=== PATIENT | female | born 1985 | race Caucasian/White ===

== ENCOUNTER 2016-09-18 16:34 | Emergency (ER) | payer OTHER ==
[2016-09-18] MEDS ORDERED: Cephalexin CAP* 500 MG PO ONE (17:18)
[2016-09-18] MEDS ORDERED: Sulfamethox/Trimethoprim DS 800/160* TAB PO ONE (17:21)
--- NOTE | 2016-09-18 17:21 | ED ---
Skin Complaint - HPI Summary HPI Summary: 31F presents with redness to left leg for 4 days. She states she has a history of cellulites. She denies any fever. She states the initially injury was a dog scratch. She states she started to take old Keflex yesterday. She states the redness on her legs has been spreading. she denies any recent travel, surgery, history of DVT, personal history of Cancer or smoking history. - History of Current Complaint Chief Complaint: EDExtremityLower Time Seen by Provider: 09/18/16 17:07 Stated Complaint: LEFT LEG PAIN Pain Intensity: 9 - Allergy/Home Medications Allergies/Adverse Reactions: Allergies Allergy/AdvReac Type Severity Reaction Status Date / Time No Known Allergies Allergy Verified 09/18/16 16:49 PMH/Surg Hx/FS Hx/Imm Hx Endocrine/Hematology History: Denies: Hx Diabetes Respiratory History: Denies: Hx Asthma - Immunization History Date of Tetanus Vaccine: w/in last 10 years Infectious Disease History: No Infectious Disease History: Denies: Traveled Outside the [place] in Last 30 Days - Family History Known Family History: Positive: Hypertension - Social History Alcohol Use: None Substance Use Type: Reports: None, Marijuana Smoking Status (MU): Never Smoked Tobacco Review of Systems Negative: Fever Negative: Chest Pain Negative: Shortness Of Breath Positive: Other - erythema of left lower leg All Other Systems Reviewed And Are Negative: Yes Physical Exam Triage Information Reviewed: Yes Vital Signs On Initial Exam: Initial Vitals Temp Pulse Resp BP Pulse Ox 98.2 F 90 17 136/75 99 09/18/16 16:46 09/18/16 16:46 09/18/16 16:46 09/18/16 16:46 09/18/16 16:46 Vital Signs Reviewed: Yes Appearance: Positive: Well-Appearing Skin: Positive: Warm, Dry, Other - 8cm by 8 cm area of erythema on left calf Head/Face: Positive: Normal Head/Face Inspection Eyes: Positive: Normal, Conjunctiva Clear Respiratory/Lung Sounds: Positive: Clear to Auscultation, Breath Sounds Present Cardiovascular: Positive: Normal, RRR Musculoskeletal: Positive: Strength/ROM Intact - of left knee and ankle, Other - good pulses. Negative: Esthela Sign Left Diagnostics - Vital Signs Vital Signs Temp Pulse Resp BP Pulse Ox 09/18/16 17:03 98.2 F 90 17 136/75 99 09/18/16 16:46 98.2 F 90 17 136/75 99 - Laboratory Lab Statement: Any lab studies that have been ordered have been reviewed, and results considered in the medical decision making process. Course/Dx - Course Course Of Treatment: 31F presents with erythema of left calf for 4 days. had dog scratch intially and then spreading redness occurred. denies any drainage. denies any fever. on exam erythema noted of left calf consistent with cellulitis. no risk factors for DVT. took one day of keflex that had at home that was old without relief. will have take keflex and bactrim due to potentially being from dog scratch. patient understands and agrees with plan - Differential Diagnoses - Skin Complaint Differential Diagnoses: Abscess, Cellulitis, Contact Dermatitis - Diagnoses Provider Diagnoses: Cellulitis of left ankle Discharge - Discharge Plan Condition: Good Disposition: HOME Prescriptions: Cephalexin CAP* [Keflex CAP*] 500 mg PO QID #39 cap Sulfamethox/Trimethoprim DS* [Bactrim DS 800/160 TAB*] 1 tab PO BID #20 tab Patient Education Materials: Cellulitis (ED) Forms: *Work Release Referrals: Olesya Mejia MD [Medical Doctor] - Additional Instructions: Take keflex four times a day for 10 days Take bactrim twice a day for 10 days Follow up with primary within 3 days Return to ED if develop fever, spreading redness, or any new or worsening symptoms
[2016-09-18 17:24] VITALS: BP 136/75
== END 2016-09-18 17:37 | disposition home or self-care (01) ==
LOC: ED 16:34
DX: L03.116 Cellulitis of left lower limb (principal)
CPT/HCPCS: 99281; A9270-GY

== ENCOUNTER 2019-02-12 17:42 | Emergency (ER) | payer SELFPAY ==
[2019-02-12 17:58] VITALS: BP 131/74
[2019-02-12] MEDS ORDERED: Ibuprofen TAB* 600 MG PO ONE (18:22)
[2019-02-12] MEDS ORDERED: cefTRIAXone VIAL(*) 1,000 MG VIAL IM ONE (18:29)
[2019-02-12] MEDS ORDERED: Lidocaine 1% MPF ** 5 ML VIAL IM ONE (18:30)
--- NOTE | 2019-02-12 18:47 | UC ---
Skin Complaint HPI - HPI Summary HPI Summary: Patient is a 33yo female presenting with cellulitis of left lower leg x4 days. She states she gets this a couple times every year for years but this is the worst it has been. She notes fevers, chills, nausea, and vomiting on saturday and saturday but believes she had the flu. She denies any fever or vomiting for the past day. Notes severe pain to touch and with ambulation. Notes swelling but that she always has swelling. She believes she has taken keflex in the past for cellulitis. - History of Current Complaint Chief Complaint: UCSkin Stated Complaint: CELLULITIS OF LEFT CALF Hx Obtained From: Patient Hx Last Menstrual Period: 02/12/2019 Onset/Duration: Sudden Onset, Lasting Days Timing: Constant Onset Severity: Mild Current Severity: Moderate Pain Intensity: 5 Pain Scale Used: 0-10 Numeric - Allergy/Home Medications Allergies/Adverse Reactions: Allergies Allergy/AdvReac Type Severity Reaction Status Date / Time No Known Allergies Allergy Verified 02/12/19 17:55 PMH/Surg Hx/FS Hx/Imm Hx Cardiovascular History: Hypertension - Surgical History Surgical History: None - Family History Known Family History: Positive: Hypertension, Non-Contributory - Social History Alcohol Use: None Substance Use Type: None Smoking Status (MU): Never Smoked Tobacco Review of Systems All Other Systems Reviewed And Are Negative: Yes Constitutional: Positive: Fever, Chills, Fatigue Skin: Positive: Rash ENT: Positive: Negative Respiratory: Positive: Negative. Negative: Shortness Of Breath, Cough Cardiovascular: Positive: Negative. Negative: Palpitations Gastrointestinal: Positive: Vomiting, Nausea. Negative: Abdominal Pain Neurovascular: Positive: Negative. Negative: Decreased Sensation Musculoskeletal: Positive: Edema. Negative: Decreased ROM Neurological: Negative: Headache, Weakness, Paresthesia, Numbness Psychological: Positive: Negative Physical Exam Triage Information Reviewed: Yes Appearance: Well-Appearing, No Pain Distress, Well-Nourished, Obese Vital Signs: Initial Vital Signs Temp 98.4 F 02/12/19 17:56 Pulse 92 02/12/19 17:56 Resp 18 02/12/19 17:56 BP 131/74 02/12/19 17:56 Pulse Ox 97 02/12/19 17:56 Vital Signs Reviewed: Yes Eyes: Positive: Conjunctiva Clear ENT: Positive: Hearing grossly normal Neck: Positive: Supple Respiratory: Positive: No respiratory distress Musculoskeletal Exam: Normal Musculoskeletal: Positive: Strength Intact, ROM Intact, Edema @ - left lower leg and ankle Neurological: Positive: Alert Psychological: Positive: Age Appropriate Behavior Skin: Positive: Rashes, Other - area of erythema and warmth over entire anterior left lower leg spreading posteriorly around leg Course/Dx - Course Course Of Treatment: Discussed with patient that because she has worsening cellulitis with concomitant fever and vomiting this week, it is advisable that she seek medical attention at the emergency department. 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 Because of this and the fact that she has been afebrile without vomiting for the past 24hours, the patient consented to IM ceftriaxone here and a prescription for Bactrim for home. She was instructed to start the Bactrim tonight. I instructed the patient to go immediately to the emergency room if the redness continues to spread past the marker made around her cellulitis while she was here, or if she experiences fever, nausea, or vomiting. Patient was also examined by Dr. Henry who agreed to the treatment plan. The patient voiced understanding and agreed to the treatment plan. - Diagnoses Provider Diagnosis: Cellulitis of left lower leg Discharge ED - Sign-Out/Discharge Documenting (check all that apply): Patient Departure All imaging exams completed and their final reports reviewed: No Studies - Discharge Plan Condition: Stable Disposition: HOME Prescriptions: Sulfamethox/Trimethoprim DS* [Bactrim DS 800/160 TAB*] 1 tab PO BID #20 tab Sulfamethox/Trimethoprim DS* [Bactrim DS 800/160 TAB*] 1 tab PO BID #20 tab Patient Education Materials: Cellulitis (ED) Referrals: Pat Lynch MD [Primary Care Provider] - If Needed Additional Instructions: As discussed, you received one shot of the antibiotic ceftriaxone for your cellulitis. Take Bactrim as prescribed for the treatment of your cellulitis. Keep the area clean and dry. You may take ibuprofen as directed for pain relief. Go directly to the emergency room if you experience fever, increasing redness and warmth to the area, drainage, or nausea and vomiting. - Billing Disposition and Condition Condition: STABLE Disposition: Home
== END 2019-02-12 18:55 | disposition home or self-care (01) ==
LOC: UCEAST 17:42
DX: L03.116 Cellulitis of left lower limb (principal); I10 Essential (primary) hypertension
CPT/HCPCS: 96372; 99212; A9270-GY; G0463; J0696

== ENCOUNTER 2019-02-14 18:22 | Emergency (ER) | payer SELFPAY ==
--- NOTE | 2019-02-14 19:43 | ED ---
Lower Extremity - HPI Summary HPI Summary: 33 yo female [place] [facility] with LEFT lower leg redness, pain, and swelling. She tells me that since she was a teenager she has been having issues with cellulitis in this area. About 6 days ago she developed mild redness and increased swelling to the area. She went to Urgent Care 2 days ago due to worsening symptoms and it was recommended that she come to the ED that day for further evaluation, but she declined. She was given 1gm of ceftriaxone and placed on Bactrim for suspected cellulitis. The red area was outlined at that time in purple marking pen. She comes to the ED this evening due to increased redness, pain, and swelling to the leg. She has been taking her antibiotics as prescribed. She has not been elevating her leg as she has an at home and states she does not have time. She denies fever, chills, n/v. She is ambulatory without assistance. - History of Current Complaint Chief Complaint: EDExtremityLower Stated Complaint: CELLULITIS IN LT LEG PER PT Time Seen by Provider: 02/14/19 19:42 Hx Obtained From: Patient Hx Last Menstrual Period: 02/12/2019 Severity Initially: Moderate Severity Currently: Moderate Pain Intensity: 6 Pain Scale Used: 0-10 Numeric - Allergies/Home Medications Allergies/Adverse Reactions: Allergies Allergy/AdvReac Type Severity Reaction Status Date / Time No Known Allergies Allergy Verified 02/12/19 17:55 Home Medications: Home Medications Ibuprofen TAB* [Advil TAB*] 800 mg PO Q8HR PRN 02/14/19 [History Confirmed 02/14] PMH/Surg Hx/FS Hx/Imm Hx Endocrine/Hematology History: Denies: Hx Blood Disorders, Hx Diabetes Cardiovascular History: Denies: Hx Cardiac Arrest Respiratory History: Denies: Hx Asthma, Hx Chronic Obstructive Pulmonary Disease (COPD) GI History: Denies: Hx Gastrointestinal Bleed Neurological History: Denies: Hx Migraine - Surgical History Surgical History: None - Immunization History Date of Tetanus Vaccine: w/in last 10 years Immunizations Up to Date: Yes Infectious Disease History: No Infectious Disease History: Denies: Traveled Outside the [place] in Last 30 Days - Family History Known Family History: Positive: Hypertension, Non-Contributory - Social History Lives: With Family Alcohol Use: None Substance Use Type: Reports: None Smoking Status (MU): Never Smoked Tobacco Review of Systems Constitutional: Negative Cardiovascular: Negative Respiratory: Negative Gastrointestinal: Negative Genitourinary: Negative Musculoskeletal: Negative Skin: Other - Left lower leg redness, pain, swelling Neurological: Negative Psychological: Normal All Other Systems Reviewed And Are Negative: No Physical Exam - Summary Physical Exam Summary: GENERAL: NAD. WDWN. No pain distress. SKIN: LEFT LOWER LEG: Moderate erythema circumferentially that does not extend beyond the previously drawn outline. Moderate taut edema to the leg and foot. Tenderness at the calf. No open wound, drainage, weeping, blistering, or ecchymosis. No streaking. NECK: Supple. Nontender. No lymphadenopathy. CHEST: No accessory muscle use. Breathing comfortably and in no distress. CV: Pulses intact popliteal, PT, and DP. Cap refill <2seconds MSK: FROM at left ankle without pain NEURO: Alert. PSYCH: Age appropriate behavior. Triage Information Reviewed: Yes Vital Signs On Initial Exam: Initial Vitals Temp Pulse Resp BP Pulse Ox 98.4 F 88 16 150/101 95 02/14/19 18:24 02/14/19 18:24 02/14/19 18:24 02/14/19 18:24 02/14/19 18:24 Vital Signs Reviewed: Yes Diagnostics - Vital Signs Vital Signs Temp Pulse Resp BP Pulse Ox 02/14/19 18:24 98.4 F 88 16 150/101 95 - Laboratory Lab Results: Laboratory Tests 02/14/19 02/14/19 02/14/19 20:08 20:08 20:08 WBC 10.8 RBC 4.79 Hgb 13.8 Hct 40 MCV 84 MCH 29 MCHC 34 RDW 14 Plt Count 280 MPV 7.4 Neut % (Auto) 71.0 Lymph % (Auto) 15.9 [place] % (Auto) 10.1 Eos % (Auto) 2.1 Baso % (Auto) 0.9 Absolute Neuts (auto) 7.7 Absolute Lymphs (auto) 1.7 Absolute Monos (auto) 1.1 H Absolute Eos (auto) 0.2 Absolute Basos (auto) 0.1 Absolute Nucleated RBC 0.0 Nucleated RBC % 0.1 Sodium 138 Potassium 3.3 L Chloride 102 Carbon Dioxide 28 Anion Gap 8 BUN 12 Creatinine 0.78 Est GFR ( Amer) 102.3 Est GFR (Non-Af Amer) 84.5 BUN/Creatinine Ratio 15.4 Glucose 102 H Lactic Acid 1.5 Calcium 8.9 Total Bilirubin 0.50 AST 17 ALT 23 Alkaline Phosphatase 61 C-Reactive Protein 94.31 H Total Protein 7.1 Albumin 3.8 Globulin 3.3 Albumin/Globulin Ratio 1.2 Result Diagrams: 02/14/19 20:08 02/14/19 20:08 Lab Statement: Any lab studies that have been ordered have been reviewed, and results considered in the medical decision making process. - Ultrasound left leg Ultrasound Interpretation Completed By: Radiologist Summary of Ultrasound Findings: IMPRESSION: No evidence of deep vein thrombosis of the thigh. The left peroneal vein is not seen. This could be occluded. Re-Evaluation - Re-Evaluation First Eval Re-Evaluation Time: 21:41 Change: Worse Comment: Increasing pain. Early scant blistering compared to earlier. Lower Extremity Course/Dx - Course Course Of Treatment: Suspect cellulitis. No leukocytosis and she has been afebrile. US negative for DVT. In the ED course she was given 1L NS, 2gm cefazolin, toradol, and morphine for her symptoms. She had much improved pain s/ p pain medication, but the appearance of the leg did not change after 1st eval. Given this, I discussed the case with hospitalist Dr. Joshua - who also examined the pt. Please see her dictacted note. Dr. Joshua recommends continue outpatient po anbx and encourage pt to elevate her leg. I discussed this with the pt and she is agreeable to discharge at this time. Strongly encoruaged to recheck with her PCP in 2 days. If she develops a fever, n/v, or worsening symptoms to return to the ED immediately. Pt voiced understanding and agrees with the plan. - Diagnoses Provider Diagnoses: Cellulitis of left leg - Physician Notifications Discussed Care Of Patient With: Lisa Joshua - Recommends continue outpatient po anbx. Elevate leg. F/u with PCP for recheck. Discharge ED - Sign-Out/Discharge Documenting (check all that apply): Patient Departure Patient Received Moderate/Deep Sedation with Procedure: No - Discharge Plan Condition: Stable Disposition: HOME Prescriptions: traMADol TAB* [Ultram*] 50 mg PO Q12H PRN #6 tab MDD 2 PRN Reason: Pain - Moderate Patient Education Materials: Cellulitis (ED) Referrals: Pat Lynch MD [Primary Care Provider] - 2 Days Additional Instructions: If you develop a fever, shortness of breath, chest pain, new or worsening symptoms - please call your PCP or go to the ED immediately. 1) Continue your antibiotic as prescribed 2) ELEVATE your leg throughout the day to decrease swelling and pain 3) If the redness, pain, or swelling worsen or if you develop a fever, nausea, vomiting - please return to the ER - Billing Disposition and Condition Condition: STABLE Disposition: Home - Attestation Statements Provider Attestation: I have seen the patient with the FELECIA and agree with the plan and documentation below except as noted: 34-year-old female who presents with lower extremity redness and swelling. Recent diagnosed with cellulitis, on Bactrim. Physical exam consistent with cellulitis however has significant swelling. We'll consider changing antibiotics to something that covers strep better. Patient given 2 doses of Ceftriaxone here, discussed hospitalist regarding admission however she states patient should be okay to follow up outpatient and continue on her antibiotics given lack of systemic symptoms.
[2019-02-14] MEDS ORDERED: ceFAZolin 2 GM in NS PREMIX(*) 2 GM/100 ML BAG IVPB ONE (20:09)
[2019-02-14] MEDS ORDERED: NS 0.9% 1000 ML** 1,000 ML IV ONE (20:09)
[2019-02-14 20:14] LABS: ABS Basophils 0.1 10^3/ul (0-0.2); ABS Eosinophils 0.2 10^3/ul (0-0.6); ABS Lymphocytes 1.7 10^3/ul (1.0-4.8); ABS Monocytes 1.1 10^3/ul (0-0.8); ABS Neutrophils 7.7 10^3/ul (1.5-7.7); Eosinophil % 2.1 %; Hematocrit 40 % (35-47); Hemoglobin 13.8 g/dL (12.0-16.0); Lymphocyte % 15.9 %; Mean Corpuscular HGB Conc 34 g/dL (31-36); Mean Corpuscular Hemoglobin 29 pg (27-31); Mean Corpuscular Volume 84 fL (80-97); Mean Platelet Volume 7.4 fL (7.4-10.4); Nucleated Red Blood Cells % 0.1; Platelet Count 280 10^3/uL (150-450); Red Blood Count 4.79 10^6 /uL (3.70-4.87); Red Cell Distribution Width 14 % (10-15); White Blood Count 10.8 10^3/uL (3.5-10.8)
[2019-02-14 20:31] LABS: Albumin 3.8 g/dL (3.2-5.2); Albumin/Globulin Ratio 1.2 (1-3); BUN/Creatinine Ratio 15.4 (8-20); C Reactive Protein 94.31 mg/L (<8.01); Calcium 8.9 mg/dL (8.6-10.3); EGFR African American 102.3 (>60); EGFR Non-African American 84.5 (>60); Globulin 3.3 g/dL (2-4); Potassium 3.3 mmol/L (3.5-5.0); Total Bilirubin 0.5 mg/dL (0.2-1.0); Total Protein 7.1 g/dL (6.4-8.9)
[2019-02-14] MEDS ORDERED: Morphine 4 MG/ML VIAL (1 ml) 4 MG/ML VIAL IV ONE (21:40)
[2019-02-14] MEDS ORDERED: Ketorolac INJ* 30 MG/ML 1 ML VIAL IV ONE (21:40)
[2019-02-14] MEDS ORDERED: traMADol TAB* 50 MG PO ONE (23:56)
[2019-02-15 00:16] VITALS: BP 133/73
--- NOTE | 2019-02-15 01:51 | CONS ---
CC: Dr. Lynch; ASTRID Samuels * CONSULTATION REPORT: DATE OF CONSULT: 02/14/19 - EMERGENCY DEPT PRIMARY CARE PROVIDER: Dr. Lynch. CHIEF COMPLAINT: Left leg redness. HISTORY OF PRESENT ILLNESS: Annika Mitchell is a 33-year-old female with history of recurrent left lower extremity edema with cellulitis, who presented initially to [facility] 2 days ago for cellulitis. She received Bactrim and she took a total of 4 tablets of Bactrim since that time and she presents today complaining of increasing redness and swelling of the left lower extremity. The patient stated that she has a 1-year-old toddler in the house and she had not been able to rest or keep her foot elevated. PAST MEDICAL HISTORY: History of recurrent left lower extremity cellulitis. MEDICATIONS: Bactrim DS 1 tablet p.o. b.i.d. SOCIAL HISTORY: The patient works at "[employer] She has a toddler at home. She denies any tobacco or drug use. REVIEW OF SYSTEMS: The patient denies any fevers, shortness of breath, denies any nausea or vomiting. Her appetite has been good. Complains of chronic left lower extremity edema with worsening in the past 5 days. Her cellulitis had been ongoing for the past 6 days, out of that for 2 of those days recently she was treated with Bactrim. All the remaining 12 systems were reviewed with the patient and were otherwise negative. PHYSICAL EXAM: Blood pressure 152/63, heart rate of 76 and regular, respiratory rate 20, oxygen saturation 97% on room air, temperature of 97.8. General: The patient is a very pleasant 33-year-old female with a BMI of 60, who is in no acute distress. Alert, awake, and oriented x3. HEENT: Head: Atraumatic, normocephalic. Eyes: Pupils are equal, reactive to light and accommodation. Oropharynx clear. Mucosa moist. Neck: Supple. No JVD. No bruit bilaterally. Cardiovascular: Regular rate and rhythm. There were no murmur. Respiratory: Clear to auscultation bilaterally. Abdomen: Soft and nontender. Bowel sounds present in all 4 quadrants. Extremities: There is left foot edema of +1. Left calf edema of +1. The calf has erythema, positive cellulitis extending from the level of the ankle to the level of the left knee. Skin appears intense red with small subcutaneous blisters. There is no evidence of the redness extending beyond the level of the demarcated area that was marked at [facility] 2 days ago. The right foot has no edema and no cellulitis. On further evaluation of the skin no other abnormalities noted. DIAGNOSTIC STUDIES/LAB DATA: White blood cell count 10.8, hemoglobin 13.8, hematocrit 40, and platelets 208. Sodium of 138, potassium 3.6, chloride 102, carbon dioxide 28, BUN 12, creatinine 0.78. Liver function tests were unremarkable. C-reactive protein of 94. The patient's Dopplers were negative for DVT. ASSESSMENT AND PLAN: In regards to the patient's left leg cellulitis, the cellulitis does not appear to be extended beyond the line that was placed on the left leg 2 days ago. The patient had been compliant with Bactrim and she had been afebrile and has had good appetite. At this point, the edema is worse and I suspect the edema is worse because the patient has a busy life as the mother of a toddler and she had not been able to keep her leg elevated. We talked at length about keeping the patient's leg elevated to allow the edema to improve. I offered for the patient to be placed on overnight observation and IV antibiotics, but I also ensured her that the leg infection would likely improve with elevation and the antibiotic that she currently is taking alone. The patient at this point chose to be discharged home and preferred not to be admitted. Recommended for the patient to come back to the hospital if she starts having open wounds in the area of cellulitis. If the cellulitis area crosses the demarcated border, if she starts having fevers or chills, nausea or vomiting or any other worrisome symptoms. Thank you very much for allowing me to see the patient in consultation. The care of the patient was discussed with the patient's current provider, Rory Arevalo, who is going to discharge the patient from the emergency room. TIME SPENT: Approximately 35 minutes were spent on this patient's consultation. [id number]/[facility] #: [id number] [place]
== END 2019-02-15 00:16 | disposition home or self-care (01) ==
LOC: ED 18:22
DX: L03.116 Cellulitis of left lower limb (principal)
CPT/HCPCS: 36415; 80053; 83605; 85025; 86140; 87040; 96365; 96366; 96375; 99283; A9270-GY; J0690; J1885; J2270

== ENCOUNTER 2019-07-21 19:36 | Emergency (ER) | payer SELFPAY ==
--- NOTE | 2019-07-21 19:53 | ED ---
Lower Extremity - HPI Summary HPI Summary: 34 year old F presenting to [facility] accompanied by her male reflexologist with a chief complaint of a right foot injury since 12:00 today after stepping off of a curb, worse since 16:30/17:00 after ambulating on it throughout the day. The patient rates the pain 8/10 in severity. Symptoms aggravated by palpation and exertion. Symptoms alleviated by nothing. Patient reports that she took 6 ibuprofen 1 hour ago without relief. The patient has previously injured her right foot when she was 5 years old and 14 years old. She denies any history of medical problems, surgery, or family illnesses. She admits to an active history of marijuana and tobacco use. Medication list reviewed. Allergy list reviewed. - History of Current Complaint Chief Complaint: EDExtremityLower Stated Complaint: R FOOT PAIN PER PT Time Seen by Provider: 07/21/19 19:49 Hx Obtained From: Patient Hx Last Menstrual Period: 02/12/2019 Mechanism Of Injury: Twisted Onset of Pain: Immediate Onset/Duration: Hours Severity Initially: Mild Severity Currently: Moderate Pain Intensity: 8 Pain Scale Used: 0-10 Numeric Timing: Constant Location: Is Discrete @ - Right foot Associated Signs And Symptoms: Positive: Swelling Aggravating Factor(s): Ambulation, Other - Palpation Alleviating Factor(s): Nothing Able to Bear Weight: No - Allergies/Home Medications Allergies/Adverse Reactions: Allergies Allergy/AdvReac Type Severity Reaction Status Date / Time No Known Allergies Allergy Verified 02/12/19 17:55 Home Medications: Home Medications Sulfamethox/Trimethoprim DS* [Bactrim DS 800/160 TAB*] 1 tab PO BID #20 tab [Rx Confirmed 02/14/19] Ibuprofen TAB* [Advil TAB*] 800 mg PO Q8HR PRN 02/14/19 [History Confirmed 02/14] traMADol TAB* [Ultram*] 50 mg PO Q12H PRN #6 tab MDD 2 02/14/19 [Rx] PMH/Surg Hx/FS Hx/Imm Hx Endocrine/Hematology History: Denies: Hx Blood Disorders, Hx Diabetes Cardiovascular History: Denies: Hx Cardiac Arrest Respiratory History: Denies: Hx Asthma, Hx Chronic Obstructive Pulmonary Disease (COPD) GI History: Denies: Hx Gastrointestinal Bleed Neurological History: Denies: Hx Migraine - Surgical History Hx Anesthesia Reactions: No - Immunization History Date of Tetanus Vaccine: w/in last 10 years Infectious Disease History: No Infectious Disease History: Denies: Traveled Outside the [place] in Last 30 Days - Family History Known Family History: Positive: Hypertension - Social History Alcohol Use: None Hx Substance Use: Yes Substance Use Type: Reports: Marijuana Hx Tobacco Use: Yes Smoking Status (MU): Current Every Day Smoker Cessation Counseling: Patient Advised to Stop - Additional Comments History Additional Comments: Previous fracture of right foot and multiple sprains of the ankle. Review of Systems - ROS Summary Review of Systems Summary: Home Medications Medication Instructions Recorded Confirmed Type Sulfamethox/Trimethoprim DS* 1 tab PO BID #20 tab 02/12/19 02/14/19 Rx [Bactrim DS 800/160 TAB*] RX: Ibuprofen TAB* [Advil TAB*] 800 mg PO Q8HR PRN 02/14/19 02/14/19 History RX: traMADol TAB* [Ultram*] 50 mg PO Q12H PRN #6 tab MDD 2 02/14/19 Rx Positive: Other - Right foot pain Positive: Other - Right foot swelling All Other Systems Reviewed And Are Negative: Yes Physical Exam - Summary Physical Exam Summary: General: Well-developed, obese female. No acute distress. HEENT: Normocephalic, Atraumatic. Eyes: Conjuctiva normal, PERRL. Oropharynx: Clear, mucous membranes moist, (-) exudates. Neck: Soft, FROM, (-) lymphadenopathy, (-) thyromegaly, (-) JVD. Cardiovascular: Normal sinus rhythm, (-) murmur. Lungs: Clear to auscultation bilaterally (-) wheezes, (-) rales, (-) rhonchi. Abdomen: Soft, non-tender, non-distended, (-) organomegaly, normal bowel sounds. Back: (-) CVA tenderness Extremities: No edema; Lateral tenderness of the mid foot area with swelling, very tender to palpation; decreased plantar flexion secondary to pain, good pulses, good capillary refill, sensation normal. Skin: Warm, dry, (-) rash. Neuro: Alert and oriented x3, moves all extremities equally. No ataxia. No gait disturbance. No sensory deficit. Normal strength, normal sensation. Psychiatric: Mood normal, affect normal. Triage Information Reviewed: Yes Vital Signs On Initial Exam: Initial Vitals Temp Pulse Resp BP Pulse Ox 98.2 F 88 18 152/94 97 07/21/19 19:40 07/21/19 19:40 07/21/19 19:40 07/21/19 19:40 07/21/19 19:40 Vital Signs Reviewed: Yes Procedures - Sedation Patient Received Moderate/Deep Sedation with Procedure: No Diagnostics - Vital Signs Vital Signs Temp Pulse Resp BP Pulse Ox 07/21/19 19:40 98.2 F 88 18 152/94 97 - Laboratory Lab Statement: Any lab studies that have been ordered have been reviewed, and results considered in the medical decision making process. - Radiology Foot x-ray Radiology Interpretation Completed By: ED Physician Summary of Radiographic Findings: No obvious fracture or dislocation. ED physician has reviewed and interpreted this report. Re-Evaluation - Re-Evaluation First Eval Re-Evaluation Time: 21:30 Change: Improved Comment: I have discussed results with the patient. Patient given crutches with instructions. Discussed symptoms that warrant immediate return to ED. Lower Extremity Course/Dx - Course Course Of Treatment: 34 year old female presents with right foot pain after stepping wrong off a curb this morning, has had lateral right foot pain since then worse throughout the day after she was trying to perform her usual duties. She took 6 ibuprofen 1 hour prior to arrival without relief. On physical exam she has significant tenderness in the lateral right midfoot area, 4th and 5th metatarsals, no significant swelling, echymosis or derformity noted. Patient had ice pack applied and foot was elevated. X-ray shows no obvious fracture or dislocation. Patient was given crutches and education. Advised to be weight bearing as tolerated, continue ice and elevation, ibuprofen TID with food, follow up with PCP. - Diagnoses Provider Diagnoses: Foot sprain, Tobacco use Discharge ED - Sign-Out/Discharge Documenting (check all that apply): Patient Departure - discharge - Discharge Plan Condition: Stable Disposition: HOME Patient Education Materials: Foot Sprain (ED) Referrals: Pat Lynch MD [Primary Care Provider] - 3 Days Additional Instructions: Please follow up with your primary care physician within three days. Please return to ED for any new or worsening symptoms. - Billing Disposition and Condition Condition: STABLE Disposition: Home - Attestation Statements Document Initiated by Scribe: Yes Documenting Scribe: Susana Jeffers Provider For Whom Scribe is Documenting (Include Credential): Radha Schultz MD Scribe Attestation: I, Susana Jeffers, scribed for Radha Schultz MD on 07/21/19 at 2348. Scribe Documentation Reviewed: Yes Provider Attestation: The documentation as recorded by the robert, Susana Jeffers accurately reflects the service I personally performed and the decisions made by me, Radha Schultz MD Status of Scribe Document: Viewed
[2019-07-21 21:43] VITALS: BP 142/82
== END 2019-07-21 21:42 | disposition home or self-care (01) ==
LOC: ED 19:36
DX: S93.602A Unspecified sprain of left foot, initial encounter (principal); X58.XXXA Exposure to other specified factors, initial encounter; Y93.89 Activity, other specified; Y92.480 Sidewalk as the place of occurrence of the external cause; F17.200 Nicotine dependence, unspecified, uncomplicated
CPT/HCPCS: 99282